=== PATIENT | female | born 1985 | race Caucasian/White ===

== ENCOUNTER → 2017-08-01 | Outpatient (CLI) | payer BC ==
[~2017-08-01] MED LIST: ASPIRIN E.C. 8181 MG PO; FLORINEF ACETA0.1 MG PO; LOPRESSOR 225 MG/TAB PO; MOTRIN 600600 MG/TAB PO; MOTRIN 800800 MG/TAB PO; PERCOCET 325 MG1 TA2 PO; PRENATAL1 TA1 PO; XANAX 0.5MG0.5 MG PO; ZOFRAN 4MG T4 MG/TAB PO
== END ==
LOC: MC.RAD 10:00
DX: N63.10 Unspecified lump in the right breast, unspecified quadrant (principal); R92.2 Inconclusive mammogram

== ENCOUNTER → 2018-01-27 | Outpatient (CLI) | payer BC | LOC: MC.RAD 08:30 | DX: N63.12 Unspecified lump in the right breast, upper inner quadrant (principal) ==

== ENCOUNTER 2018-06-30 07:20 | Inpatient (IN) | payer BC ==
[~2018-06-30] VITALS: Ht 175.3 cm; Wt 77.3 kg
[2018-06-30] VITALS (34 sets, daily range): BP systolic 99–126; BP diastolic 49–71; PULSE 53–125; TEMP 97.8–98.3
[2018-06-30 08:53] LABS: BASO % 0.2 % (0.0-2.0); EOS % 0.8 % (0-4.0); GRAN # 3.2 (1.4-6.5); GRAN % 62.2 % (42.2-75.2); HEMOGLOBIN 12.2 g/dl (12.5-16.0); LYMPH # 1.4 (1.2-3.4); LYMPH % 27.7 % (20.0-51.0); MEAN CELL VOLUME 97 fl (80.0-100.0); MEAN CORPUSCULAR HEMOGLOBIN 34 pg (27.0-31.0); MEAN CORPUSCULAR HGB CONC 35 g/dl (33.0-37.0); MEAN PLATELET VOLUME 11.7 fl (7.4-10.4); MONO # 0.4 (0.1-0.6); MONO % 8.1 % (1.7-9.3); PLATELET COUNT 126 K/mm3 (130-400); RED BLOOD COUNT 3.59 M/mm3 (4.10-5.30)
[2018-06-30 08:57] LABS: HEMATOCRIT 34.7 % (37.0-47.0)
[2018-06-30] MEDS ORDERED: PRENATAL-U1 CAP PO (11:50)
[2018-07-01 02:00] VITALS: BP 89/50; PULSE 58
[2018-07-01 07:00] VITALS: BP 95/52; PULSE 54; TEMP 97.8
[2018-07-01 13:38] VITALS: BP 93/42; PULSE 60; TEMP 97.8
[2018-07-01 16:34] VITALS: BP 102/53; PULSE 62; TEMP 97.3
[2018-07-01 20:30] VITALS: BP 96/46; PULSE 59; TEMP 98.1
[2018-07-02 08:00] VITALS: BP 98/56; PULSE 64; TEMP 97.4
[2018-07-02] MEDS ORDERED: IBU800 M1 PO (09:12)
== END 2018-07-02 12:25 | disposition home or self-care (01) | DRG 775 ==
LOC: LDR 07:20 → OB 19:30
PROVIDERS: Student in an Organized Health Care Education/Training Program
PROC: 10E0XZZ Delivery of Products of Conception, External Approach (ICD-10-PCS; principal; 2018-06-30)
PROC: 3E033VJ Introduction of Other Hormone into Peripheral Vein, Percutaneous Approach (ICD-10-PCS; 2018-06-30)
PROC: 10907ZC Drainage of Amniotic Fluid, Therapeutic from Products of Conception, Via Natural or Artificial Opening (ICD-10-PCS; 2018-06-30)
DX: O75.89 Other specified complications of labor and delivery (principal); O26.893 Other specified pregnancy related conditions, third trimester; O48.0 Post-term pregnancy; I95.1 Orthostatic hypotension; Z37.0 Single live birth; Z3A.40 40 weeks gestation of pregnancy
CPT/HCPCS: J2590; J7030; J7120

== ENCOUNTER 2018-10-08 08:00 | Outpatient (RCR) | payer BC ==
[~2018-10-08 08:00] MED LIST changes: +IBU800 M1 PO; +PRENATAL-U1 CAP PO
== END 2018-10-20 | disposition home or self-care (01) ==
LOC: MKS.ESL.PT
DX: R10.2 Pelvic and perineal pain (principal); M54.9 Dorsalgia, unspecified

== ENCOUNTER 2018-12-17 08:15 | Outpatient (RCR) | payer BC | END 2019-01-19 | disposition home or self-care (01) | LOC: MKS.ESL.PT | DX: M54.5 Low back pain (principal) ==

== ENCOUNTER → 2019-02-17 | Outpatient (CLI) | payer BC | LOC: COL.RAD 11:48 | DX: R19.03 Right lower quadrant abdominal swelling, mass and lump (principal) ==

== ENCOUNTER → 2019-02-24 | Outpatient (CLI) | payer BC | LOC: COL.RAD 07:48 | DX: R19.03 Right lower quadrant abdominal swelling, mass and lump (principal); Z97.5 Presence of (intrauterine) contraceptive device | CPT/HCPCS: Q9967 ==

== ENCOUNTER 2019-06-11 08:15 | Outpatient (RCR) | payer BC | END 2019-08-20 | disposition home or self-care (01) | LOC: MKS.ESL.PT | DX: M54.5 Low back pain (principal) ==

== ENCOUNTER 2020-03-07 08:45 | Outpatient (RCR) | payer BC | END 2020-05-22 | disposition still patient (30) | LOC: MKS.ESL.PT | DX: M54.5 Low back pain (principal) ==

== ENCOUNTER 2020-10-17 11:00 | Outpatient (RCR) | payer BC | END 2020-10-31 | disposition home or self-care (01) | LOC: MKS.ESL.PT | DX: M54.5 Low back pain (principal) ==

== ENCOUNTER 2024-06-30 13:47 | Outpatient (RCR) | payer BC ==
[~2024-06-30 13:47] MED LIST changes: +CRUTCHES MC
== END 2024-07-27 | disposition home or self-care (01) ==
LOC: WSST
DX: R13.10 Dysphagia, unspecified (principal)